=== PATIENT | male | born 1995 | race Caucasian/White ===

== ENCOUNTER 2016-10-01 22:06 | Emergency (ER) | payer BC ==
[~2016-10-01] VITALS: Ht 167.6 cm; Wt 87.0 kg
[~2016-10-01 22:06] MED LIST: ERYT1OIN55 OPL
[2016-10-01 22:09] VITALS: TEMP 37.1; Ht 167.6 cm; Wt 87.0 kg
[2016-10-01] MEDS ORDERED: DOXY1TAB PO (22:59)
[2016-10-01] MEDS ORDERED: XYLOCAINE 1%/SOD BICARB 20 ML VIAL INFIL ONE (23:30)
[2016-10-02 00:09] VITALS: BP 142/98; PULSE 96; O2SAT 95
--- NOTE | 2016-10-03 14:46 | EMERGENCY ROOM VISIT NOTE ---
ED Visit Note First contact with patient: 22:57 Chief Complaint: I cut my left eye. History of Present Illness: Mr. Minaya is a 21-year-old white male who ambulates into the ED complaining of a laceration through the eyebrow of the left eye. Patient reports approximately one hour ago he was playfully wrestling with his roommate in his dorm room. He then reports things started to get intense and he fell into a table. He struck his right eye and sustained his lacerations. He reports at the time of the injury he did not have loss of consciousness and since the injury he denies all signs of head injury. He does complain of a mild stinging pain in the area of his laceration. He rates this discomfort 2/10. The pain is nonradiating. The pain worsens with palpation. He has not identified any alleviating factors related to the pain. He hasn't taken any medications for pain prior to arrival at the hospital. He denies any associated headache, dizziness, lightheadedness, visual changes, other facial pain, neck pain, nausea, vomiting. Review of Systems: As noted above in history of present illness. 8 body systems were reviewed and found to be negative as noted above. Past Medical History: Patient denies. Current Medications: Doxycycline. Allergies to Medications: Augmentin. Social History: Patient is University student; he feels safe in his home environment; he denies tobacco use; he admits to alcohol use. Tetanus Immunization Status: Patient reports up-to-date. Physical Examination: Vital Signs: Date Time Temp Pulse Resp B/P Pulse Ox O2 Delivery O2 Flow Rate FiO2 10/02/16 00:09 96 18 142/98 95 10/01/16 22:09 37.1 113 18 181/111 96 Room Air GENERAL: 21-year-old male in no acute distress, nontoxic-appearing, afebrile and hemodynamically stable. NEUROLOGICAL: Awake, alert and oriented to person, place and time. Answering questions appropriately and following commands. Normal gait. Good hand eye coordination. No focal motor sensory deficits. Cranial nerves 2 to 12 grossly intact. SKIN: Warm, dry and pink. Face: Left Eyebrow: Patient has 2 full-thickness wounds in his eyebrow the medial wound measures approximately 1.8 cm and the lateral laceration measures approximately 2.1 cm and is full-thickness. HEENT: Atraumatic and normocephalic. Skull: No bony deformities, depressions or tenderness. No raccoon's eyes or gómez signs. No drainage from the ears and nostrils; no hemotympanum. Face: No bony tenderness or deformity. He does have some mild swelling over the upper eyelid of the left eye and there is just the beginning of bruising over the lower eyelid. PERRLA. EOMI without nystagmus. No malocclusion. Airway patent. Speech normal. Trachea midline. No jugular venous distention. BACK: No tenderness over the bony cervical and thoracic spine. Full range of motion of the cervical spine. ED Course: Patient is assessed as noted above. Wound Repair: Complexity: Basic Verbal consent was obtained after the risks and benefits were explained. The skin was prepped with betadine and a sterile field set. Wound edges of the wounds were anesthetized with a total of 2.2 ml buffered 1% lidocaine. The wounds were explored for foreign bodies and none found. Copious irrigation was performed using sterile saline. With direct pressure the bleeding subsided. Debridement was not performed. The wound edges were approximated using 6-0 Ethilon with a total of 8 simple interrupted sutures. Hemostasis and excellent approximation was achieved. Antibacterial ointment applied. No complications and the patient tolerated the procedure well. Patient was educated about tonight's findings and instructed on his treatment plan; he verbalizes understanding and agreement with this plan. Clinical Impression: Laceration of the left eyebrow. Disposition: Patient discharged home in stable condition; prior to departure he was reassessed and subjectively he was pain-free. Reported Plan: Comfort measures, wound care, signs of infection and signs of head injury were discussed with the patient were discussed with the patient. Patient was encouraged to follow-up with [facility] or return ED for signs of infection and/or suture removal in 5-6 days. Patient was encouraged return to the ED for any signs of head injury or any new/ concerning symptoms.
== END 2016-10-02 00:09 | disposition home or self-care (01) ==
LOC: C.EDB 22:07 → C.EDD 10-02 00:09
DX: S01.112A Laceration without foreign body of left eyelid and periocular area, initial encounter (principal); W18.30XA Fall on same level, unspecified, initial encounter; Y93.83 Activity, rough housing and horseplay; Y92.169 Unspecified place in school dormitory as the place of occurrence of the external cause